=== PATIENT | male | born 1955 | race Caucasian/White ===

== ENCOUNTER 2021-07-02 10:12 | Emergency (ER) | payer OTHER ==
[~2021-07-02] VITALS: Ht 177.8 cm; Wt 81.6 kg
== END 2021-07-02 12:41 | disposition home or self-care (01) ==
LOC: ED 10:12
DX: S61.011A Laceration without foreign body of right thumb without damage to nail, initial encounter (principal); W25.XXXA Contact with sharp glass, initial encounter; Y93.89 Activity, other specified; Y92.89 Other specified places as the place of occurrence of the external cause; Y99.8 Other external cause status